=== PATIENT | female | born 1970 | race Caucasian/White ===

== ENCOUNTER 2017-09-02 05:43 | Inpatient (IN) | payer OTHER ==
[2017-09-02] MEDS: CEFAZOLIN 2 GM/50 ML (PMX) 50 ML IVPB (06:00)
[2017-09-02] MEDS: DEXTROSE 5%-LR 1,000 ML IV (06:30)
[2017-09-02] MEDS ORDERED: CEFAZOLIN 1 GM INJ (07:29)
[2017-09-02] MEDS ORDERED: PROPOFOL 20 ML (07:29)
[2017-09-02] MEDS ORDERED: FENTAnyl 50 MCG/ML VIAL (07:29)
[2017-09-02] MEDS ORDERED: MIDAZOLAM 1 MG/ML 2 ML INJ (07:29)
[2017-09-02] MEDS ORDERED: METOCLOPRAMIDE 10 MG INJ (07:30)
[2017-09-02] MEDS ORDERED: ONDANSETRON 4 MG INJ (07:30)
[2017-09-02] MEDS ORDERED: KETOROLAC 30 MG INJ (07:30)
[2017-09-02] MEDS ORDERED: morphine SULFATE/PF (10 MG/10 ML) INJ (07:33)
[2017-09-02] MEDS ORDERED: DIPHENHYDRAMINE 50 MG INJ IV (08:00)
[2017-09-02] MEDS ORDERED: MEPERIDINE 25 MG INJ IV (08:00)
[2017-09-02] MEDS ORDERED: ONDANSETRON 4 MG INJ IV (08:00)
[2017-09-02] MEDS ORDERED: HYDROmorphONE (0.2 MG/ML) 10ML SYG IV ×3 (08:00)
[2017-09-02] MEDS: LACTATED RINGER'S 1,000 ML IV ×4 (10:04→21:30)
[2017-09-02] MEDS ORDERED: LACTATED RINGER'S 1,000 ML IV (10:04)
[2017-09-02] MEDS ORDERED: HYDROCODONE/APAP (5/325) TAB PO ×2 (10:30)
[2017-09-02] MEDS ORDERED: KETOROLAC 30 MG INJ IV (10:30)
[2017-09-02] MEDS ORDERED: HYDROmorphONE 1 MG/ML SYG IV ×2 (10:30)
[2017-09-02] MEDS ORDERED: ZOLPIDEM 5 MG TAB PO ×2 (10:30)
[2017-09-02] MEDS ORDERED: BISACODYL (EC) 5 MG TAB PO ×2 (10:30)
[2017-09-02] MEDS ORDERED: DIPHENHYDRAMINE 50 MG CAP PO ×2 (10:30)
[2017-09-02] MEDS: KETOROLAC 30 MG INJ IV ×3 (11:04→22:27)
[2017-09-02] MEDS ORDERED: METOCLOPRAMIDE 10 MG TAB PO (12:00)
[2017-09-02] MEDS: CEFAZOLIN 1 GM/50 ML (PMX) 50 ML IVPB ×2 (13:56→22:26)
[2017-09-02] MEDS: METOCLOPRAMIDE 10 MG TAB PO ×3 (13:56→23:29)
[2017-09-02] MEDS ORDERED: CEFAZOLIN 1 GM/50 ML (PMX) 50 ML IVPB (14:00)
[2017-09-02] MEDS: ONDANSETRON 4 MG INJ IV (16:21)
[2017-09-03] MEDS: LACTATED RINGER'S 1,000 ML IV ×3 (01:44→10:04)
[2017-09-03] MEDS: CEFAZOLIN 1 GM/50 ML (PMX) 50 ML IVPB ×3 (05:24→22:05)
[2017-09-03] MEDS: KETOROLAC 30 MG INJ IV ×3 (05:24→17:18)
[2017-09-03] MEDS: METOCLOPRAMIDE 10 MG TAB PO ×4 (05:25→23:57)
[2017-09-03] MEDS: HYDROCODONE/APAP (5/325) TAB PO ×3 (05:37→20:07)
[2017-09-03 05:39] LABS: ADD MAN DIFF? NO
[2017-09-03 05:42] LABS: WHITE BLOOD COUNT 8.2 10^3/ul (4.8-10.8)
[2017-09-03 05:42] LABS: BASOPHILS % 0.2 % (0.0-2.0); EOSINOPHILS # 0.1 10^3/ul (0.0-0.5); EOSINOPHILS % 0.6 % (0.0-7.0); LYMPHOCYTES # 1.5 10^3/ul (0.8-2.9); LYMPHOCYTES % 18.1 % (15.0-51.0); MEAN CORPUSCULAR HEMOGLOBIN 31.1 pg (29.0-33.0); MEAN CORPUSCULAR HGB CONC 34.4 g/dl (32.0-37.0); MEAN CORPUSCULAR VOLUME 90.4 fl (82.0-101.0); MEAN PLATELET VOLUME 10.1 fl (7.4-10.4); MONOCYTE # 0.7 10^3/ul (0.3-0.9); MONOCYTES % 8.1 % (0.0-11.0); NEUTROPHIL # 5.9 10^3/ul (1.6-7.5); NEUTROPHILS % 72.8 % (39.0-77.0); PLATELET COUNT 229 10^3/UL (140-415); RED BLOOD COUNT 3.54 10^6/ul (4.20-5.40); RED CELL DISTRIBUTION WIDTH 12.5 % (11.5-14.5)
[2017-09-03 06:33] LABS: ANION GAP 10 (8-16); BLOOD UREA NITROGEN 8 mg/dl (7-20); CARBON DIOXIDE 25 mmol/L (21-31); CHLORIDE 108 mmol/L (97-110); CREATININE 0.54 mg/dl (0.44-1.00); POTASSIUM 3.7 mmol/L (3.5-5.1); SODIUM 139 mmol/L (135-144)
[2017-09-03] MEDS ORDERED: LISINOPRIL 5 MG TAB PO (09:00)
[2017-09-03] MEDS: LISINOPRIL 5 MG TAB PO (09:03)
[2017-09-04] MEDS: HYDROCODONE/APAP (5/325) TAB PO ×3 (02:18→18:06)
[2017-09-04] MEDS: CEFAZOLIN 1 GM/50 ML (PMX) 50 ML IVPB (05:30)
[2017-09-04] MEDS: METOCLOPRAMIDE 10 MG TAB PO ×3 (05:31→18:06)
[2017-09-04] MEDS: LISINOPRIL 5 MG TAB PO (09:36)
[2017-09-04] MEDS: BISACODYL (EC) 5 MG TAB PO (09:37)
[2017-09-05] MEDS: METOCLOPRAMIDE 10 MG TAB PO ×3 (00:01→13:20)
[2017-09-05] MEDS: HYDROCODONE/APAP (5/325) TAB PO ×2 (03:47→13:21)
[2017-09-05] MEDS: LISINOPRIL 5 MG TAB PO (09:10)
[2017-09-05] MEDS: ACETAMINOPHEN 500 MG TAB PO (09:15)
== END 2017-09-05 17:20 | disposition home or self-care (01) | DRG 743 ==
LOC: REC 05:43 → MS2 12:45
PROC: 0UT90ZZ Resection of Uterus, Open Approach (ICD-10-PCS; principal; 2017-09-02 07:29)
PROC: 0UT70ZZ Resection of Bilateral Fallopian Tubes, Open Approach (ICD-10-PCS; 2017-09-02 07:29)
DX: D25.1 Intramural leiomyoma of uterus (principal); D25.2 Subserosal leiomyoma of uterus; R10.2 Pelvic and perineal pain; N80.9 Endometriosis, unspecified; N92.1 Excessive and frequent menstruation with irregular cycle
CPT/HCPCS: 80051; 82565; 84520; 85025; 86850; 86900; 86901; 87086; 88305